=== PATIENT | male | born 1980 | race Caucasian/White ===

== ENCOUNTER 2016-10-27 15:30 | Outpatient (RCR) | payer BC ==
[~2016-10-27 15:30] MED LIST: NO HOME MEDICATIONS; NORCO 325 MG-51 TAB PO
== END 2016-11-11 16:27 | disposition home or self-care (01) ==
LOC: WSOT 15:30
DX: M77.02 Medial epicondylitis, left elbow (principal); M25.522 Pain in left elbow

== ENCOUNTER 2024-07-27 17:32 | Emergency (ER) | payer OTHER ==
[~2024-07-27] VITALS: Ht 188 cm; Wt 97.7 kg
[2024-07-27 17:37] VITALS: TEMP 97.9
[2024-07-27] MEDS ORDERED: NS 1,000 ML IV ONE (18:00)
[2024-07-27] MEDS ORDERED: Ondansetron 4 MG/2 ML VIAL IV ONE (18:00)
[2024-07-27] MEDS ORDERED: Ketorolac 30 MG/ML VIAL IV ONE (18:00)
[2024-07-27 18:15] LABS: COLLECTION METHOD CLEAN CATCH
[2024-07-27 18:18] LABS: BASO % 0.4 % (0.0-2.0); EOS % 0.2 % (0.0-4.0); GRAN # 8.9 K/mm3 (1.4-6.5); GRAN % 84.1 % (42.2-75.2); HEMATOCRIT 44.7 % (42.0-52.0); HEMOGLOBIN 15.2 g/dl (13.5-18.0); LYMPH # 1.1 K/mm3 (1.2-3.4); LYMPH % 10.2 % (20.0-51.0); MEAN CELL VOLUME 90 fl (80.0-100.0); MEAN CORPUSCULAR HEMOGLOBIN 31 pg (27-31); MEAN CORPUSCULAR HGB CONC 34 g/dl (33.0-37.0); MEAN PLATELET VOLUME 9.9 fl (7.4-10.4); MONO # 0.5 K/mm3 (0.1-0.6); MONO % 4.7 % (1.7-9.3); PLATELET COUNT 307 K/mm3 (130-400); RED BLOOD COUNT 4.96 M/mm3 (4.20-5.60); REDCELL DISTRIBUTION WIDTH-CV 12.8 % (11.5-14.5)
[2024-07-27 18:25] LABS: URINE APPEARANCE CLEAR (CLEAR/HAZY); URINE BLOOD TRACE (NEGATIVE); URINE COLOR YELLOW (YELLOW); URINE GLUCOSE NEGATIVE (NEGATIVE); URINE KETONE TRACE (NEGATIVE); URINE NITRATE NEGATIVE (NEGATIVE); URINE PROTEIN(semi-quant) TRACE (NEGATIVE); URINE UROBILINOGEN 0.2 E.U/dL (0.2-1.0)
[2024-07-27] MEDS ORDERED: Iohexol 300 - 100 ML VIAL IV ONE (18:36)
[2024-07-27 18:40] LABS: ALBUMIN 4.3 g/dL (3.5-5.0); BILIRUBIN,TOTAL 0.4 mg/dL (0.2-1.2); CALCIUM 9.8 mg/dL (8.4-10.2); CREATININE, serum 1.37 mg/dL (0.72-1.25); POTASSIUM 4.4 mEq/L (3.5-4.5); TOTAL PROTEIN 7.6 g/dl (6.2-8.1)
[2024-07-27] MEDS ORDERED: NS 50 ML IV ONE (18:40)
[2024-07-27] MEDS ORDERED: Home HYDROcodone/Acetaminophen 5/325 MG #4 TABS/PACK PO ONE (19:30)
[2024-07-27] MEDS ORDERED: FLOMAX 0.40.4 MG/CAP PO (19:34)
[2024-07-27] MEDS ORDERED: NORCO 325 MG-51 TAB PO (19:37)
[2024-07-27 19:38] VITALS: BP 147/96; PULSE 73
== END 2024-07-27 19:52 | disposition home or self-care (01) ==
LOC: COL.ER 17:32
PROVIDERS: Physician Assistant
DX: N13.2 Hydronephrosis with renal and ureteral calculous obstruction (principal)
CPT/HCPCS: J1885; J2405; J7030; Q9967